=== PATIENT | male | born 1980 | race Caucasian/White ===

== ENCOUNTER 2016-10-02 22:22 | Emergency (ER) | payer OTHER ==
[~2016-10-02] VITALS: Ht 170.2 cm; Wt 83.3 kg
[~2016-10-02 22:22] MED LIST: SUMA50TA15 PO; TRAZ50TA35 PO
[2016-10-02 22:25] VITALS: TEMP 36.8; Ht 170.2 cm; Wt 83.3 kg
--- NOTE | 2016-10-02 23:24 | EMERGENCY ROOM VISIT NOTE ---
History Report prepared by Manuel: Mila Garcia Under the Supervision of: Dr. Galina Lee D.O. First contact with patient: 23:03 Chief Complaint: ANXIETY Stated Complaint: PANIC ATTACKS History of Present Illness The patient is a 35 year old male who presents to the Emergency Room with complaints of constant anxiety beginning last night. The patient states that he has been having a panic attack and has been having chest pains from his anxiety. He notes that he has taken 17 baths over the last two days to try to relax. He reports that his chest felt tight 2 hours ago, he felt arm pain and numbness, and it became more difficult to breathe for about 4 seconds. The patient reports that he is being treated for depression since his mother from cancer at the beginning of the month. He states that he takes 50mg of Trazodone when he needs to sleep and was previously on Klonopin as needed in the past. The patient complains of chest pain, sweating, arm pain, arm numbness , dizziness, and shortness of breath. He denies any suicidal or homicidal ideation, history of heart problems, drug abuse, and abdominal pain. Source of History: patient Onset: last night Position: other (global) Quality: other (anxiety, panic attack) Timing: constant Modifying Factors (Worsening): other (mother ) Associated Symptoms: + SOB, + chest pain, + numbness, No abdominal pain Note: The patient complains of sweating, arm pain, dizziness. He denies any suicidal or homicidal ideation, history of heart problems, drug abuse. Review of Systems See HPI for pertinent positives & negatives. A total of 10 systems reviewed and were otherwise negative. Past Medical & Surgical Medical Problems: (1) Asthma (2) Heart disease (3) Hypertension (4) Kidney stones Family History Diabetes mellitus FH: cancer FH: heart disease Hypertension Kidney disease or stones Social History Smoking Status: Current Every Day Smoker Alcohol Use: occasionally Marital Status: in relationship Housing Status: lives with significant other Occupation Status: employed Current/Historical Medications Scheduled Clonazepam (Klonopin), 1 TAB PO TID Trazodone Hcl (Trazodone), 50 MG PO HS Scheduled PRN Albuterol Hfa (Ventolin Hfa), 1 PUFF PO Q4 PRN for SOB/Wheezing Allergies Coded Allergies: Amoxicillin (Verified Allergy, Intermediate, UNKNOWN, 10/03/16) Cyclobenzaprine (Verified Allergy, Intermediate, MOOD SWINGS, 10/03/16) Aspirin (Unverified Allergy, Mild, 10/03/16) Penicillins (Unverified Allergy, Mild, 10/03/16) Codeine (Verified Allergy, Unknown, rash, 10/03/16) Tramadol (Verified Allergy, Unknown, ., 10/03/16) Venlafaxine (Verified Allergy, Unknown, ., 10/03/16) Physical Exam Vital Signs Date Time Temp Pulse Resp B/P Pulse Ox O2 Delivery O2 Flow Rate FiO2 10/03/16 00:32 92 16 121/66 98 Room Air 10/02/16 23:38 83 18 97 Room Air 10/02/16 23:33 87 10/02/16 22:25 36.8 90 18 143/83 97 Room Air Physical Exam HEENT: Head - normocephalic and atraumatic Pupils are equal, round, and reactive to light. Extraocular eye muscles are intact, and sclera are anicteric. Nose - moist nasal mucosa without discharge. Mouth - moist buccal mucosa. Oropharynx is nonerythematous and there is no tonsillar exudate or edema noted. Neck: Supple; no JVD, nuchal rigidity, cervical lymphadenopathy, or auscultated bruits. Heart: Regular rate and rhythm. There is a normal S1 and S2 with no murmurs, clicks, or gallops appreciated. Lungs: Clear to auscultation bilaterally with no wheezes, rales, or rhonchi. Abdomen: Soft, completely nontender, nondistended, with good bowel sounds. There are no palpable pulsatile masses or hepatosplenomegaly. There is no guarding, rigidity, or rebound noted. Extremities: No evidence of cyanosis, clubbing, or edema. There are easily palpable peripheral pulses. Skin: Diaphoretic with good turgor and no rashes. Skin has multiple tattoos. Medical Decision & Procedures Laboratory Results 10/02/16 23:30 10/02/16 23:30 Test 10/02/16 23:30 10/02/16 23:33 Red Blood Count 4.96 M/uL (4.7-6.1) Mean Corpuscular Volume 93.8 fL (80-100) Mean Corpuscular Hemoglobin 33.5 pg (25-34) Mean Corpuscular Hemoglobin Concent 35.7 g/dl (32-36) RDW Standard Deviation 44.2 fL (36.4-46.3) RDW Coefficient of Variation 12.8 % (11.5-14.5) Mean Platelet Volume 9.1 fL (7.4-10.4) Anion Gap 6.0 mmol/L (3-11) Est Creatinine Clear Calc Drug Dose 118.3 ml/min Estimated GFR () 127.8 Estimated GFR (Non- 110.3 BUN/Creatinine Ratio 14.6 (10-20) Calcium Level 8.8 mg/dl (8.5-10.1) Total Bilirubin 0.3 mg/dl (0.2-1) Aspartate Amino Transf (AST/SGOT) 15 U/L (15-37) Alanine Aminotransferase (ALT/SGPT) 30 U/L (12-78) Alkaline Phosphatase 113 U/L (45-117) Total Protein 7.6 gm/dl (6.4-8.2) Albumin 4.0 gm/dl (3.4-5.0) Globulin 3.6 gm/dl (2.5-4.0) Albumin/Globulin Ratio 1.1 (0.9-2) Lipase 382 U/L (73-393) Bedside Troponin I 0.000 ng/ml (0-0.045) Laboratory results per my review. Medications Administered Medications (Trade) Dose Ordered Sig/Diego Route Start Time Stop Time Status Last Admin Dose Admin Clonazepam (Klonopin Tab) 0.5 mg NOW STAT PO 10/03/16 00:27 10/03/16 00:29 DC 10/03/16 00:44 0.5 MG Procedure 0027: Klonopin Tab 0.5mg PO. ECG Indication: chest pain Rate (beats per minute): 84 Rhythm: normal sinus Findings: other (Flattened T-Waves laterally and inferiorly) Comparison ECG Date: 01/30/2009 Change: Flattened T waves now present ED Course 2303: Past medical records reviewed. The patient was evaluated in room A12B. A complete history and physical exam was performed. 0027: Klonopin Tab 0.5mg to take home since the patient drove 0034: I reevaluated and updated the patient. He was curious about his WBC count because his PCP told him in the past that it was very high. Today it was 11.5. 0034: Upon reevaluation, the patient is doing well. I discussed findings and results with the patient. He verbalized agreement of the treatment plan. The patient was discharged home. Medical Decision The patient is a 35 year old male who presents to the ED with anxiety. Differential diagnosis includes anxiety, mood disorder, cardiac ischemia, costochondritis, pleurisy. LABS: Troponin 0 Lipase and LFTs are Normal Normal Glucose and Renal Function Stable H&H WBC 11.5 This is a 35-year-old male patient presents to the emergency department with left-sided chest pain and anxiety. The patient does have a history of anxiety and is not currently taking any medications other than trazodone for sleep. The patient is scheduled to see a new primary care doctor where they plan to review his previous medications and get him started back on meds. The patient drove himself here tonight and therefore could not give her anything for his current anxious state. He was given a Klonopin to use at home. I also gave him prescription for 10 more Klonopin these until he could follow up with his PCP. Patient had negative cardiac enzymes within normal EKG. He believes that the left-sided discomfort is secondary to his anxiety. Impression Primary Impression: Anxiety Additional Impression: Left sided chest pain Scribe Attestation The scribe's documentation has been prepared under my direction and personally reviewed by me in its entirety. I confirm that the note above accurately reflects all work, treatment, procedures, and medical decision making performed by me. Departure Information Dispostion Home / Self-Care Prescriptions Clonazepam (KLONOPIN) 0.5 Mg Tab 1 TAB PO TID for Anxiety, #10 TAB Prov: Galina Lee D.O. 10/03/16 Referrals No Doctor, Assigned (PCP) Forms HOME CARE DOCUMENTATION FORM, IMPORTANT VISIT INFORMATION Patient Instructions Anxiety Body Response, Anxiety Disorder, My [facility] Additional Instructions Resturn to the ER if you have worsening symptoms. Follow up with PCP on Tuesday to adress meds Klonopin - 1 tab. every 6 hours for anxiety. No driving while taking Problem Qualifiers
[2016-10-02 23:54] LABS: HEMATOCRIT 46.5 % (42-52); MEAN CELL VOLUME 93.8 fL (80-100); MEAN CORPUSCULAR HEMOGLOBIN 33.5 pg (25-34); MEAN CORPUSCULAR HGB CONC 35.7 g/dl (32-36); MEAN PLATELET VOLUME 9.1 fL (7.4-10.4); PLATELET COUNT 251 K/uL (130-400); RED BLOOD COUNT 4.96 M/uL (4.7-6.1); WHITE BLOOD COUNT 11.52 K/uL (4.8-10.8)
[2016-10-03] MEDS ORDERED: VNTHFA/IN PO (00:03)
[2016-10-03 00:14] LABS: BUN/CREATININE RATIO 14.6 (10-20); CALCIUM 8.8 mg/dl (8.5-10.1); CREATININE 0.9 mg/dl (0.60-1.40)
[2016-10-03 00:16] LABS: ALB/GLOB RATIO 1.1 (0.9-2)
[2016-10-03] MEDS ORDERED: CLONAZEPAM 0.5 MG TAB PO STA (00:27)
[2016-10-03 00:32] VITALS: BP 121/66; PULSE 92; O2SAT 98
[2016-10-03] MEDS ORDERED: CLON0.5T3 PO (00:45)
== END 2016-10-03 00:52 | disposition home or self-care (01) ==
LOC: C.EDB 22:23 → C.EDA 10-03 00:52
DX: F41.9 Anxiety disorder, unspecified (principal); R07.9 Chest pain, unspecified; J45.909 Unspecified asthma, uncomplicated; I51.9 Heart disease, unspecified; I10 Essential (primary) hypertension; Z83.3 Family history of diabetes mellitus; Z82.49 Family history of ischemic heart disease and other diseases of the circulatory system; F17.200 Nicotine dependence, unspecified, uncomplicated

== ENCOUNTER 2017-04-24 06:58 | Emergency (ER) | payer OTHER ==
[~2017-04-24] VITALS: Ht 170.2 cm; Wt 85.0 kg
[~2017-04-24 06:58] MED LIST changes: -SUMA50TA15 PO; +VNTHFA/IN PO
[2017-04-24 07:03] VITALS: TEMP 37; Ht 170.2 cm; Wt 85.0 kg
[2017-04-24] MEDS ORDERED: KETOROLAC TROMETHAMINE 60 MG/2 ML VIAL IM STA (07:21)
[2017-04-24] MEDS ORDERED: DEXAMETHASONE SOD INJ 4 MG/ML 5 ML VIAL IM STA (07:21)
[2017-04-24] MEDS ORDERED: DEXAMETHASONE **PF** INJ 10 MG/ML VIAL ONE (07:28)
[2017-04-24] MEDS ORDERED: DEXT1LIQ58 PO (07:34)
[2017-04-24] MEDS ORDERED: PSEU1TAB67 PO (07:34)
[2017-04-24] MEDS ORDERED: PHEN-905 PO (07:34)
--- NOTE | 2017-04-24 08:23 | DIAGNOSTIC IMAGING REPORT ---
L-SPINE MIN 4 VIEWS ROUTINE HISTORY: 36 years-old Male LBP w/ R radiculitis acute low back pain with radiation into the right lower extremity COMPARISON: CT abdomen and pelvis 05/04/2016, lumbar spine CT 09/04/2011 TECHNIQUE: 5 views of the lumbar spine FINDINGS: Transitional lumbosacral anatomy noted with elongation and pseudoarticulation of the broadened L5 transverse processes with the adjacent sacral ala. No spondylolysis or spondylolisthesis. No acute fracture or subluxation. There is minimal intervertebral disc space narrowing at L5-S1. There is a 2 mm radiodensity projecting over the left upper abdomen. IMPRESSION: 1. No acute fracture or subluxation. 2. Transitional lumbosacral anatomy as above with L5-S1 intervertebral disc space narrowing. 3. 2 mm radiodensity projecting over the left upper abdomen may reflect renal calculus. The above report was generated using voice recognition software. It may contain grammatical, syntax or spelling errors. Electronically signed by: Skinny Greer M.D. 04/24/2017 8:21 AM Dictated Date/Time: 04/24/2017 8:19 AM
[2017-04-24 08:47] VITALS: BP 145/94; PULSE 86; O2SAT 96
[2017-04-24] MEDS ORDERED: NAPR-1169 PO (08:49)
[2017-04-24] MEDS ORDERED: METH4PAK PO (08:49)
[2017-04-24] MEDS ORDERED: OXYC1TAB3 PO (08:49)
--- NOTE | 2017-04-24 17:01 | EMERGENCY ROOM VISIT NOTE ---
History First contact with patient: 07:08 Chief Complaint: BACK PAIN Stated Complaint: LWR BACK PAIN-CAN'T WALK History of Present Illness The patient is a 36 year old male who presents to the Emergency Room with complaints of lower back pain radiating down the right leg to the foot and toes. The patient reports that he rolled out of bed this morning and landed on his right hip. The patient denies any bladder or bowel incontinence, saddle anesthesias or significant right lower extremity weakness. Weightbearing worsens his back pain. The patient reports a prior history of back problems, and in fact is on disability because of his back. The patient reports that he was seen by a spine surgeon in [place] who recommended surgery for herniated disc; however, the patient reports that he is unable to afford the surgery. The patient denies any significant problems with his back. He currently rates his discomfort an 8 out of 10. Review of Systems 10 system review was performed and was negative except for pertinent positives and negatives as indicated in history of present illness Past Medical/Surgical History Medical Problems: (1) Asthma (2) Chronic low back pain with sciatica (3) Heart disease (4) Hypertension (5) Kidney stones Family History Diabetes mellitus FH: cancer FH: heart disease Hypertension Kidney disease or stones Social History Smoking Status: Current Every Day Smoker Alcohol Use: occasionally Marital Status: in relationship Housing Status: lives with significant other Occupation Status: employed Current/Historical Medications Scheduled Dextromethorphan-Phenylephrine (Vicks Dayquil Cold & Flu), 1 DOSE PO UD Methylprednisolone (Medrol Dosepak), 0 PO DAILY Naproxen (Naprosyn), 500 MG PO BID Uzogwoqxskxlr-Htirqlkrcq-Deeji (Nyquil Severe Cold/Flu 5-6.25-10-325 mg/15Ml), 1 DOSE PO UD Pseudoephedrine Hcl (Pseudoephedrine Hcl Er), 1 TAB PO BID Trazodone Hcl (Trazodone), 50 MG PO HS Scheduled PRN Albuterol Hfa (Ventolin Hfa), 1 PUFF PO Q4 PRN for SOB/Wheezing Oxycodone Ir (Roxicodone Ir), 1-2 TAB PO Q4H PRN for Pain Physical Exam Vital Signs Date Time Temp Pulse Resp B/P (MAP) Pulse Ox O2 Delivery O2 Flow Rate FiO2 04/24/17 08:47 86 18 145/94 96 Room Air 11/12/17 07:03 37.0 104 20 152/78 97 Room Air Physical Exam CONSTITUTIONAL: Healthy and well nourished. Alert and oriented X 3 with positive affect. Patient appears in moderate discomfort from pain. HEENT: Normocephalic, atraumatic. Pupils equal, round and reactive. NECK: Full active range of motion without discomfort. RESPIRATORY: Clear to auscultation bilaterally with no wheezing, crackles, rhonchi or stridor. CARDIOVASCULAR: Regular rate and rhythm with no murmurs, rubs or gallops. GASTROINTESTINAL: Bowel sounds present in all quadrants. Soft and nontender to palpation. MUSCULOSKELETAL: Examination shows generalized tenderness to palpation through the lower back region and SI joints. Negative logroll. Negative sitting straight leg raise. Ankle plantar/dorsiflexion strength is 5 out of 5 and symmetric bilaterally. Pedal pulses are intact. INTEGUMENTARY: No rash or other significant dermatologic conditions noted. NEUROLOGIC: No focal neurologic deficits noted. Lower extremity deep tendon reflexes are 2+ and symmetric bilaterally. Medical Decision & Procedures ER Provider Diagnostic Interpretation: My interpretation of lumbar spine x-rays does not show any obvious fractures, subluxation or spondylolisthesis. There is narrowing at the L5-S1 disc space. Radiologist report is as follows: L-SPINE MIN 4 VIEWS ROUTINE HISTORY: 36 years-old Male LBP w/ R radiculitis acute low back pain with radiation into the right lower extremity COMPARISON: CT abdomen and pelvis 05/04/2016, lumbar spine CT 09/04/2011 TECHNIQUE: 5 views of the lumbar spine FINDINGS: Transitional lumbosacral anatomy noted with elongation and pseudoarticulation of the broadened L5 transverse processes with the adjacent sacral ala. No spondylolysis or spondylolisthesis. No acute fracture or subluxation. There is minimal intervertebral disc space narrowing at L5-S1. There is a 2 mm radiodensity projecting over the left upper abdomen. IMPRESSION: 1. No acute fracture or subluxation. 2. Transitional lumbosacral anatomy as above with L5-S1 intervertebral disc space narrowing. 3. 2 mm radiodensity projecting over the left upper abdomen may reflect renal calculus. Medications Administered Medications (Trade) Dose Ordered Sig/Diego Route Start Time Stop Time Status Last Admin Dose Admin Ketorolac Tromethamine (Toradol Inj) 60 mg NOW STAT IM 04/24/17 07:21 04/24/17 07:24 DC 04/24/17 07:30 60 MG Dexamethasone Sodium Phosphate (Dexamethasone Inj Pf) 10 mg STK-MED ONCE .ROUTE 04/24/17 07:28 04/24/17 07:29 DC 04/24/17 07:56 10 MG ED Course Patient history and physical exam were performed. Nurse's notes were reviewed. Vital signs were reviewed and were normal. Review of the patient's allergy list shows that he is allergic to aspirin, codeine, cyclobenzaprine and tramadol. I also reviewed the [place] Prescription Drug Monitoring Program , showing that the patient was prescribed Suboxone earlier this year. For the patient's discomfort, he was administered IM Toradol and Decadron. X-rays of the lumbar spine shows L5-S1 narrowing, otherwise no other acute findings are noted. Upon further questioning of the patient's reason for prior Suboxone use , he reports that his PCP referred him to Dr. Ortega because of marijuana use. The patient reports that he only took the Suboxone for 2 months and did not like the side effects. He reports that he has been clean of marijuana since that time. It is noted that the patient has no prior opioid prescriptions, and will therefore be provided prescriptions for Naprosyn, Medrol Dosepak and OxyIR. The patient was advised that he must follow-up with his PCP for any further pain management, I suspect that his PCP will likely refer him back to [facility] for reevaluation of his back. The patient was also seen and examined by Dr. Cooper, ED attending physician, who agrees with workup and plan of care. The patient was happy with plan of care, and rated his discomfort a 5 out of 10 at the time of discharge. The patient was instructed to return to the emergency department for any symptoms consistent with cauda equina, including progressively worsening pain, bladder/bowel incontinence, saddle anesthesias and/or foot drop. Medical Decision [place] Drug Monitoring Program Search Results: patient reviewed within database, see additional documentation Medication Reconcilliation Current Medication List: was personally reviewed by me Blood Pressure Screening Patient's blood pressure: Normal blood pressure Impression Primary Impression: Chronic low back pain with sciatica Additional Impression: Fall from bed Departure Information Prescriptions Oxycodone Ir (Roxicodone Ir) 5 Mg Tab 1-2 TAB PO Q4H Y for Pain, #15 TAB For Initial Treatment Prov: Glen Burr PA 04/24/17 Methylprednisolone (MEDROL DOSEPAK) 4 Mg Rosendo 0 PO DAILY, #1 PKT Prov: Glen Burr PA 04/24/17 Naproxen (Naprosyn) 500 Mg Tab 500 MG PO BID for 14 Days, #28 TAB Prov: Glen Burr PA 04/24/17 Referrals Sudha Couch C.R.N.P. (PCP) Patient Instructions My [facility] Problem Qualifiers Primary Impression: Chronic low back pain with sciatica Back pain laterality: right Sciatica laterality: sciatica of right side Qualified Codes: M54.41 - Lumbago with sciatica, right side; G89.29 - Other chronic pain Additional Impression: Fall from bed Encounter type: initial encounter Qualified Codes: W06.XXXA - Fall from bed , initial encounter
== END 2017-04-24 09:00 | disposition home or self-care (01) ==
LOC: C.EDB 06:59
DX: M54.41 Lumbago with sciatica, right side (principal); G89.29 Other chronic pain; W06.XXXA Fall from bed, initial encounter; Y92.013 Bedroom of single-family (private) house as the place of occurrence of the external cause; J45.909 Unspecified asthma, uncomplicated; I11.9 Hypertensive heart disease without heart failure; Z87.442 Personal history of urinary calculi; Z83.3 Family history of diabetes mellitus; Z80.9 Family history of malignant neoplasm, unspecified; Z82.49 Family history of ischemic heart disease and other diseases of the circulatory system; Z84.1 Family history of disorders of kidney and ureter; F17.210 Nicotine dependence, cigarettes, uncomplicated; Z79.899 Other long term (current) drug therapy

== ENCOUNTER 2018-01-26 16:54 | Emergency (ER) | payer OTHER ==
[~2018-01-26] VITALS: Ht 172.7 cm; Wt 87.0 kg
[~2018-01-26 16:54] MED LIST changes: +DEXT1LIQ58 PO; +PHEN-905 PO; +PSEU1TAB67 PO
[2018-01-26 17:14] VITALS: Ht 172.7 cm; Wt 87.0 kg
[2018-01-26 17:30] VITALS: O2SAT 99
[2018-01-26] MEDS ORDERED: SODIUM CHLORIDE 0.9% 1000ML 1,000 ML IV STA (17:34)
--- NOTE | 2018-01-26 17:48 | DIAGNOSTIC IMAGING REPORT ---
SINGLE VIEW CHEST CLINICAL HISTORY: Atypical chest pain. FINDINGS: An AP, portable, upright chest radiograph is compared to study dated 04/29/2013. The cardiomediastinal silhouette is unremarkable. The lungs and pleural spaces are clear. No pneumothorax is seen. The bony thorax is grossly intact. IMPRESSION: No active disease in the chest. Electronically signed by: Chapo Joseph M.D. 01/26/2018 5:47 PM Dictated Date/Time: 01/26/2018 5:47 PM
[2018-01-26 18:05] LABS: BASO % 0.3 %; BASO ABS # 0.04 K/uL (0-0.2); EOS % 1.4 %; HEMATOCRIT 48.5 % (42-52); HEMOGLOBIN 17.3 g/dL (14.0-18.0); IG# 0.04 K/uL (0.00-0.02); LYMPH % 30.3 %; LYMPH ABS # 4.27 K/uL (1.2-3.4); MEAN CELL VOLUME 91.2 fL (80-100); MEAN CORPUSCULAR HEMOGLOBIN 32.5 pg (25-34); MEAN CORPUSCULAR HGB CONC 35.7 g/dl (32-36); MEAN PLATELET VOLUME 9.4 fL (7.4-10.4); MONO % 5.7 %; NEUT ABS # 8.75 K/uL (1.4-6.5); PLATELET COUNT 275 K/uL (130-400); RED CELL DISTRIBUTION WIDTH CV 12.8 % (11.5-14.5); RED CELL DISTRIBUTION WIDTH SD 42.8 fL (36.4-46.3)
[2018-01-26] MEDS ORDERED: TRAZ100T29 PO (18:20)
[2018-01-26] MEDS ORDERED: ALBINS/ INH (18:20)
[2018-01-26 18:31] LABS: ALBUMIN 4.2 gm/dl (3.4-5.0); ALKALINE PHOSPHATASE 100 U/L (45-117); ALT/SGPT 51 U/L (12-78); AST/SGOT 24 U/L (15-37); BLOOD UREA NITROGEN 11 mg/dl (7-18); CALCIUM 9.1 mg/dl (8.5-10.1); CARBON DIOXIDE 25 mmol/L (21-32); CREATININE 0.99 mg/dl (0.60-1.40); GLUCOSE 90 mg/dl (70-99); LIPASE 158 U/L (73-393); POTASSIUM 4.1 mmol/L (3.5-5.1); SODIUM 135 mmol/L (136-145); TOTAL PROTEIN 7.8 gm/dl (6.4-8.2)
[2018-01-26] MEDS ORDERED: LORA-741 PO (21:31)
[2018-01-26] MEDS ORDERED: ATIVAN 1MG HOMEPACK PO ONE (21:45)
[2018-01-26 21:56] VITALS: BP 123/78; PULSE 75; TEMP 37; O2SAT 97
--- NOTE | 2018-01-27 03:14 | EMERGENCY ROOM VISIT NOTE ---
ED Visit Note First contact with patient: 17:20 Chief Complaint: Chest heaviness. History of Present Illness: Mr. Daniels is a 37 year-old white male who ambulates into the ED accompanied by female friend complaining of chest heaviness. Historically patient reports hypertension, asthma and bronchitis. Patient reports a gradual onset of heaviness sensation that started in his chest 4 days ago. Since that time the pain has been constant. The discomfort is constantly described as a 50 pound weight sitting on his chest. His discomfort is radiating into the bilateral shoulders. He reports his pain worsens when he is moving from the sitting to the lying position and moving from the sitting to the standing position. He has mild relief of his discomfort when he is standing up, bending forward at the waist and leaning forward. He does not feel this of pain and does not rate his discomfort. He has not taken any medications for this discomfort prior to arrival at the hospital. Associated with his pain he reports that he feels short of breath. He has not taken any medications for his symptoms prior to arrival at the hospital. Patient denies fevers, chills, sweats, skin eruptions, skin color changes, upper respiratory tract symptoms, wheezing, cough shortness of breath, orthopnea, dependent edema, previous clots, claudication, cramping, recent surgery/inactivity/extended travel, abdominal pain, nausea, vomiting, diarrhea, constipation, rectal bleeding, black/tarry stools, urinary symptoms, back/flank pain. Review of Systems: As noted above in history of present illness. All body systems were reviewed and found to be negative as noted above. Past Medical History: As previously noted. Current Medications: Albuterol, trazodone. Allergies to Medications: Amoxicillin, aspirin, codeine, cyclobenzaprine, tramadol, venlafaxine. Social History: Patient is not employed; he lives with his and feels safe in his home environment; he admits to tobacco use and denies alcohol and illicit drug use. Physical Examination: Vital Signs: Date Time Temp Pulse Resp B/P (MAP) Pulse Ox O2 Delivery O2 Flow Rate FiO2 01/26/18 21:56 37.0 75 13 123/78 97 01/26/18 21:16 75 01/26/18 20:59 65 13 97 01/26/18 20:29 68 18 96 01/26/18 19:59 64 15 97 01/26/18 19:29 74 18 97 01/26/18 18:59 64 13 97 01/26/18 18:54 66 12 97 01/26/18 18:32 123/78 01/26/18 18:24 71 18 96 01/26/18 18:01 129/87 01/26/18 17:54 71 14 97 01/26/18 17:31 142/78 01/26/18 17:30 99 Room Air 01/26/18 17:26 74 01/26/18 17:25 140/96 01/26/18 17:14 37.0 75 20 140/85 99 Room Air GENERAL: 37-year-old male in mild distress due to pain, nontoxic-appearing, afebrile and hemodynamically stable. NEUROLOGICAL: Awake, alert and oriented to person, place and time. Answering questions appropriately and following commands. Normal gait. Good hand eye coordination. SKIN: Warm, dry and pink. No soft tissue eruptions or trauma noted. HEENT: Atraumatic and normocephalic. PERRLA. Sclera white and conjunctiva pink. Oral cavity moist and pink. Pharynx is nonerythematous or edematous. Speech normal. No lymphadenopathy. Trachea midline. No jugular venous distention. BACK: No tenderness over the bony spine. No CVA tenderness. THORAX: Lungs sounds are clear to auscultation and equal bilaterally with symmetrical chest wall. No wheezing, rales or rhonchi. Reproducible discomfort with palpation over the anterior chest. No bony deformity, bony crepitus, swelling or subcutaneous air. No increased respiratory effort or rate. HEART: Regular rate and rhythm. No gallops, rubs or murmurs are appreciated. No lifts, heaves or thrills. PMI is not displaced. ABDOMEN: Flat, soft and nontender. Positive bowel sounds in all quadrants. No guarding, rigidity or organomegaly. EXTREMITIES: Moves all extremities well on command and with purpose. All distal neurovascular statuses are intact and equal bilaterally. No dependent edema or calf tenderness/cords. ED Course: Patient is assessed as noted above. Patient's medication list was reviewed. Laboratory Testing: Test 01/26/18 17:55 01/26/18 19:27 01/26/18 21:11 Range/Units White Blood Count 14.10 4.8-10.8 K/uL Red Blood Count 5.32 4.7-6.1 M/uL Hemoglobin 17.3 14.0-18.0 g/dL Hematocrit 48.5 42-52 % Mean Corpuscular Volume 91.2 80-100 fL Mean Corpuscular Hemoglobin 32.5 25-34 pg Mean Corpuscular Hemoglobin Concent 35.7 32-36 g/dl Platelet Count 275 130-400 K/uL Mean Platelet Volume 9.4 7.4-10.4 fL Neutrophils (%) (Auto) 62.0 % Lymphocytes (%) (Auto) 30.3 % Monocytes (%) (Auto) 5.7 % Eosinophils (%) (Auto) 1.4 % Basophils (%) (Auto) 0.3 % Neutrophils # (Auto) 8.75 1.4-6.5 K/uL Lymphocytes # (Auto) 4.27 1.2-3.4 K/uL Monocytes # (Auto) 0.80 0.11-0.59 K/uL Eosinophils # (Auto) 0.20 0-0.5 K/uL Basophils # (Auto) 0.04 0-0.2 K/uL RDW Standard Deviation 42.8 36.4-46.3 fL RDW Coefficient of Variation 12.8 11.5-14.5 % Immature Granulocyte % (Auto) 0.3 % Immature Granulocyte # (Auto) 0.04 0.00-0.02 K/uL Sodium Level 135 136-145 mmol/L Potassium Level 4.1 3.5-5.1 mmol/L Chloride Level 105 98-107 mmol/L Carbon Dioxide Level 25 21-32 mmol/L Anion Gap 5.0 3-11 mmol/L Blood Urea Nitrogen 11 7-18 mg/dl Creatinine 0.99 0.60-1.40 mg/dl Est Creatinine Clear Calc Drug Dose 109.6 ml/min Estimated GFR () 112.3 Estimated GFR (Non- 96.9 BUN/Creatinine Ratio 11.0 10-20 Random Glucose 90 70-99 mg/dl Calcium Level 9.1 8.5-10.1 mg/dl Total Bilirubin 0.4 0.2-1 mg/dl Direct Bilirubin < 0.1 0-0.2 mg/dl Aspartate Amino Transf (AST/SGOT) 24 15-37 U/L Alanine Aminotransferase (ALT/SGPT) 51 12-78 U/L Alkaline Phosphatase 100 45-117 U/L Total Protein 7.8 6.4-8.2 gm/dl Albumin 4.2 3.4-5.0 gm/dl Lipase 158 73-393 U/L Troponin I < 0.015 0-0.045 ng/ml Bedside Troponin I < 0.030 0-0.045 ng/ml Chest X-Rays: Were read by myself and the radiologist showing no acute infiltrates, effusions or pneumothorax. Normal heart silhouette and bony anatomy. EK was read by myself and reviewed with Dr. Riggins; shows normal sinus rhythm with sinus arrhythmia. Ventricular rate 69 bpm. Normal axis, intervals and complexes. No acute ST changes indicating ischemia, injury or infarction. This was compared to a previous and the only abnormal finding was the new sinus arrhythmia. EK was read by myself and reviewed with Dr. Riggins; shows normal sinus rhythm with sinus arrhythmia. Ventricular rate 64 bpm. Normal axis, intervals and complexes. No acute ST changes indicating ischemia, injury or infarction. This was compared to previous and no acute changes were noted. Cardiac score 0. Patient was hydrated with normal saline. Prior to discharge patient queried if this could be anxiety related. He reports he has recently had his mother passed and has been stressed with work and other family matters. I did inform him it could be stress related unfortunately there are no test to show that it would be stress related and that a evaluation would be needed to make sure was not something physical. After patient was hydrated with normal saline and he did report he was feeling better but was still feeling slight heaviness in his chest. Patient's case was reviewed with Dr. Riggins; we agreed on diagnostic approach, treatment, disposition and plan. Patient was educated about today's findings and instructed on his treatment plan ; he verbalized on this plan. Clinical Impression: Chest heaviness. Possible anxiety. Decision-Making: Initially my differential diagnosis I considered acute coronary syndrome, thoracic aneurysm, pneumothorax, pulmonary embolism, pneumonia and other causes. Disposition: Patient discharged home in stable condition; prior to departure he was reassessed and subjectively reported he was feeling better. Plan: Patient was encouraged to continue his current medications as prescribed. Patient was prescribed a 3 day course of Ativan and encouraged to use a half a milligram every 6 hours as needed for anxiety. Patient was informed that Ativan was a controlled substance and precautions were given to the patient. Additionally his name was checked on state database and no red flags were noted. Patient was encouraged to follow-up with his family physician for recheck and further evaluation. Patient was encouraged return the ED for worsening symptoms, fevers, coughing up blood or any new/concerning symptoms.
== END 2018-01-26 21:57 | disposition home or self-care (01) ==
LOC: C.EDB 16:55 → C.EDC 21:57
DX: R07.89 Other chest pain (principal); R06.02 Shortness of breath; I10 Essential (primary) hypertension; J45.909 Unspecified asthma, uncomplicated; Z72.0 Tobacco use; Z79.899 Other long term (current) drug therapy; Z88.0 Allergy status to penicillin; Z88.6 Allergy status to analgesic agent; Z88.8 Allergy status to other drugs, medicaments and biological substances

== ENCOUNTER 2019-07-14 18:45 | Observation (INO) ==
[2019-07-14] MEDS ORDERED: KETOROLAC TROMETHAMINE 15 MG/ML VIAL IV ONE (19:24)
[2019-07-14] MEDS ORDERED: ONDANSETRON INJ 2 MG/ML 2 ML VIAL IV STA (19:24)
[2019-07-14] MEDS ORDERED: SODIUM CHLORIDE 0.9% 1000ML 1,000 ML IV ONE (19:24)
[2019-07-14] MEDS: HYDROmorphone INJ 0.5 MG/0.5 ML SYR IV PRN ×2 (19:44→20:02)
[2019-07-14 19:50] LABS: Basophils # (auto) 0.04 K/uL (0-0.2); Basophils % (auto) 0.2 %; Eosinophils # (auto) 0.34 K/uL (0-0.5); Eosinophils % (auto) 1.7 %; Hemoglobin 15.4 g/dL (14.0-18.0); Immature Granulocytes # (auto) 0.05 K/uL (0.00-0.02); Immature Granulocytes % (auto) 0.3 %; Lymphocytes # (auto) 4.37 K/uL (1.2-3.4); Mean Corpuscular Volume 94.4 fL (80-100); Mean Platelet Volume 8.8 fL (7.4-10.4); Monocytes # (auto) 1.66 K/uL (0.11-0.59); Monocytes % (auto) 8.4 %; Neutrophils # (auto) 13.41 K/uL (1.4-6.5); Neutrophils % (auto) 67.4 %; Platelet Count 286 K/uL (130-400); RDW Coefficient of Variation 12.8 % (11.5-14.5); Red Blood Count 4.66 M/uL (4.7-6.1); White Blood Count 19.87 K/uL (4.8-10.8)
--- NOTE | 2019-07-14 19:50 | XRay Report ---
KUB CLINICAL HISTORY: Left ureteral stone. FINDINGS: 2 AP supine abdominal radiographs are compared to study dated 05/04/2016 and correlated wit h abdominal CT dated 07/12/2019. There is a nonobstructed abdominal bowel gas pattern noting moderate colonic fecal retention. No calcifications are seen projecting over either kidney or along the course of the ureters. The left ureteral stone seen yesterday may project over the bony pelvis. The lung ba ses are clear as imaged. The bony structures appear intact. IMPRESSION: 1. No renal calculi are identified. The left ureteral stone seen yesterday may project over the bony pelvis. 2. No bowel obstruction. Electronically signed by: Chapo Joseph M.D. 07/14/2019 7:49 PM
[2019-07-14 20:10] LABS: Appearance Urine Cloudy (Clear); Bacteria Urine Automated Negative (Negative); Bilirubin Urine Negative (Negative); Blood Urine 3+ (Negative); Color Urine Dark Yellow; Glucose Urine UA Negative (Negative); Ketones Urine Trace (Negative); Leukocyte Esterase Urine Negative (Negative); Nitrite Urine Negative (Negative); Protein Urine Negative (Negative); RBC Urine Automated >30 /hpf (0-4); Specific Gravity Urine 1.031 (1.000-1.030); Urobilinogen Urine Negative (Negative)
[2019-07-14 20:12] LABS: Albumin Level 3.7 gm/dl (3.4-5.0); BUN Creatinine Ratio 10.6 (10-20); Calcium 9.1 mg/dl (8.5-10.1); Creatinine Clr Calc Pharmacy 61.2 ml/min; Est GFR (African American) 65.9; Est GFR (Non-African American) 56.8; Potassium 3.7 mmol/L (3.5-5.1)
[2019-07-14 20:15] LABS: Albumin Globulin Ratio 1.1 (0.9-2); Bilirubin,Total 0.3 mg/dl (0.2-1); Globulin 3.4 gm/dl (2.5-4.0); Total Protein 7.1 gm/dl (6.4-8.2)
--- NOTE | 2019-07-14 22:41 | History & Physical Report ---
Date of Service July 14, 2019 Assessment & Plan (1) Ureterolithiasis: Left 5mm stone Obs med/surg Stain urine LR @ 150 Pain and nausea control NPO Urology consult (2) Hydronephrosis of left kidney: (3) Asthma: Continue prn albuterol (4) Hypertension: Continue lisinopril (5) Anxiety: Continue Trazodone and prn Ativan. History of Present Illness 38 y/o male was diagnosed with 5mm L ureteral stone in this ED yesterday. He was discharged to home with pain and nausea medication. He has continued to have severe pain with N/V not able to keep down medication. No F/C, cough, SOB, chest pain, hematuria, or diarrhea. Primary Care Provider: Alisha Tabor MD Allergies Allergy/AdvReac Type Severity Reaction Status Date / Time amoxicillin Allergy Intermediate UNKNOWN Verified 07/14/19 19:28 cyclobenzaprine Allergy Intermediate MOOD SWINGS Verified 07/14/19 19:28 aspirin Allergy Mild Unknown Verified 07/14/19 19:28 Penicillins Allergy Mild Unknown Verified 07/14/19 19:28 codeine Allergy Unknown rash Verified 07/14/19 19:28 tramadol Allergy Unknown . Verified 07/14/19 19:28 venlafaxine Allergy Unknown . Verified 07/14/19 19:28 Home Medications Home Medications Medication Instructions Recorded Confirmed Type albuterol sulfate [Ventolin HFA] 2 puff INHALATION QID PRN 07/30/18 07/14/19 History lisinopril [Zestril] 10 mg PO DAILY 07/30/18 07/14/19 History lorazepam [Ativan] 0.5 mg PO BID PRN 07/30/18 07/14/19 History trazodone 100 mg PO HS 07/30/18 07/14/19 History cefdinir 300 mg PO BID 10 Days #20 cap 07/13/19 07/14/19 Rx acetaminophen [Tylenol Extra 1,000 mg PO Q6H PRN 07/14/19 07/14/19 History Strength] hydrocodone-acetaminophen 1 tab PO Q6H PRN 07/14/19 07/14/19 History Past Med/Surg History Medical History Asthma (Chronic) Heart disease (Chronic) Hypertension (Chronic) Multiple substance abuse (Inactive) Family History Other Cancer Diabetes Hypertension Kidney disease Seizure Social History Preferred Language: Romanian Feels Safe at Home: Yes Smoking Status: Current every day smoker Review of Systems Review of Systems: Constitutional- no fever; no weight loss Eyes- no acute visual changes ENT- no sinus drainage; no pharyngitis Pulmonary- no cough, no wheezing, no shortness of breath Cardiac- no chest pain, no palpitations, no orthopnea, no dependent edema GI- See HPI - See HPI Musculoskeletal- no arthralgias, no myalgias Derm- no rashes, no new skin lesions. Hematologic- no unusual bruising, no unusual bleeding Lymphatics- no adenopathy Endocrine- no polyuria or polydipsia; no heat or cold intolerance Neuro- no headaches, no focal neurologic symptoms Psych- no anxiety, no depression Physical Exam Physical Exam: General- adult male, AND Head- atraumatic Eyes- PERRL, EOMI, anicteric ENT- oropharynx clear Neck- supple, no JVD, no adenopathy, no thyromegaly. Lungs-CTA b/l No R/R/W Heart- regular rhythm; no murmur, no gallop, no rub appreciated Abdomen- normal bowel sounds, soft, nontender. Mild Right costovertebral angle tenderness with percussion. Extremities- no pretibial edema, no calf tenderness; peripheral pulses intact Neuro- alert, oriented x 3; PERRL, EOMI; lining marker II-XII grossly intact, non-focal. Skin- warm & dry Results & Data Vital Signs (Past 12 Hours) Vital Signs Temp Pulse Pulse Resp BP BP Pulse Ox 07/14/19 22:33 82 17 126/76 98 07/14/19 21:25 69 18 143/89 H 99 07/14/19 20:51 70 18 143/85 H 99 07/14/19 19:49 99 07/14/19 18:50 36.4 C L 110 H 22 147/86 H 100 Laboratory Results Laboratory Results WBC 19.87 K/uL (4.8-10.8) H 07/14/19 19:37 RBC 4.66 M/uL (4.7-6.1) L 07/14/19 19:37 Hgb 15.4 g/dL (14.0-18.0) 07/14/19 19:37 Hct 44.0 % (42-52) 07/14/19 19:37 MCV 94.4 fL (80-100) 07/14/19 19:37 MCH 33.0 pg (25-34) 07/14/19 19:37 MCHC 35.0 g/dL (32-36) 07/14/19 19:37 RDW Std Deviation 44.0 fL (36.4-46.3) 07/14/19 19:37 RDW Coeff of Bruna 12.8 % (11.5-14.5) 07/14/19 19:37 Plt Count 286 K/uL (130-400) 07/14/19 19:37 MPV 8.8 fL (7.4-10.4) 07/14/19 19:37 Immature Gran % (Auto) 0.3 % 07/14/19 19:37 Neut % (Auto) 67.4 % 07/14/19 19:37 Lymph % (Auto) 22.0 % 07/14/19 19:37 [place] % (Auto) 8.4 % 07/14/19 19:37 Eos % (Auto) 1.7 % 07/14/19 19:37 Baso % (Auto) 0.2 % 07/14/19 19:37 Immature Gran # (Auto) 0.05 K/uL (0.00-0.02) H 07/14/19 19:37 Neut # (Auto) 13.41 K/uL (1.4-6.5) H 07/14/19 19:37 Lymph # (Auto) 4.37 K/uL (1.2-3.4) H 07/14/19 19:37 [place] # (Auto) 1.66 K/uL (0.11-0.59) H 07/14/19 19:37 Eos # (Auto) 0.34 K/uL (0-0.5) 07/14/19 19:37 Baso # (Auto) 0.04 K/uL (0-0.2) 07/14/19 19:37 Sodium 138 mmol/L (136-145) 07/14/19 19:37 Potassium 3.7 mmol/L (3.5-5.1) 07/14/19 19:37 Chloride 104 mmol/L (98-107) 07/14/19 19:37 Carbon Dioxide 27 mmol/L (21-32) 07/14/19 19:37 Anion Gap 6.0 (3-11) 07/14/19 19:37 BUN 16 mg/dl (7-18) 07/14/19 19:37 Creatinine 1.53 mg/dl (0.6-1.4) H 07/14/19 19:37 Est Cr Clr Drug Dosing 61.2 ml/min 07/14/19 19:37 Est GFR ( Amer) 65.9 07/14/19 19:37 Est GFR (Non-Af Amer) 56.8 07/14/19 19:37 BUN/Creatinine Ratio 10.6 (10-20) 07/14/19 19:37 Glucose 135 mg/dl (70-99) H 07/14/19 19:37 Calcium 9.1 mg/dl (8.5-10.1) 07/14/19 19:37 Total Bilirubin 0.3 mg/dl (0.2-1) 07/14/19 19:37 AST 14 U/L (15-37) L 07/14/19 19:37 ALT 20 U/L (12-78) 07/14/19 19:37 Alkaline Phosphatase 90 U/L (45-117) 07/14/19 19:37 Total Protein 7.1 gm/dl (6.4-8.2) 07/14/19 19:37 Albumin 3.7 gm/dl (3.4-5.0) 07/14/19 19:37 Globulin 3.4 gm/dl (2.5-4.0) 07/14/19 19:37 Albumin/Globulin Ratio 1.1 (0.9-2) 07/14/19 19:37 Lipase 303 U/L (73-393) 07/14/19 19:37 Urine Color Dark Yellow 07/14/19 19:45 Urine Appearance Cloudy (Clear) A 07/14/19 19:45 Urine pH 6.0 (4.5-7.5) 07/14/19 19:45 Ur Specific [place] 1.031 (1.000-1.030) H 07/14/19 19:45 Urine Protein Negative (Negative) 07/14/19 19:45 Urine Glucose (UA) Negative (Negative) 07/14/19 19:45 Urine Ketones Trace (Negative) H 07/14/19 19:45 Urine Blood 3+ (Negative) H 07/14/19 19:45 Urine Nitrite Negative (Negative) 07/14/19 19:45 Urine Bilirubin Negative (Negative) 07/14/19 19:45 Urine Urobilinogen Negative (Negative) 07/14/19 19:45 Ur Leukocyte Esterase Negative (Negative) 07/14/19 19:45 Urine WBC (Auto) 1-5 /hpf (0-5) 07/14/19 19:45 Urine RBC (Auto) >30 /hpf (0-4) H 07/14/19 19:45 U Hyaline Cast (Auto) 1-5 /lpf (0-5) 07/14/19 19:45 U Epithel Cells (Auto) 5-10 /lpf (0-5) H 07/14/19 19:45 Urine Bacteria (Auto) Negative (Negative) 07/14/19 19:45 Diagnostic Findings [place], [place] [phone] CT Scan Report Patient: BEVERLEY STROUD Date: 07/12/19 MR#: [id number]: [address] Acct ID:[id number]: Date: 1980[facility] Zip: [place] [address] Age: 38Location: ED Sex: M Room/Bed: Att Phy:Diagnosis: L ABDOMINAL PAIN SHOOTING DOWN TO GROIN Miladys Phy: Alisha Tabor M.D.Service Date: 07/12/19 Fam Phy:Interpreting Phy: Roderick Flanagan MD Admit Phy: Ordering Phy: Damien Ross PA-C cc: ~ CT SCAN OF THE ABDOMEN AND PELVIS WITHOUT CONTRAST CLINICAL HISTORY: Left flank pain radiating to the testicles COMPARISON STUDY: 05/04/2016 TECHNIQUE: CT scan of the abdomen and pelvis was performed from the lung bases to the proximal femurs. Images are reviewed in the axial, sagittal, and coronal planes. IV contrast was not administered for this examination. A dose lowering technique was utilized adhering to the principles of ALARA. CT DOSE: 894.68 mGycm FINDINGS: Lower chest: The heart is normal in size and configuration, without pericardial effusion. The lung bases and pleural spaces are clear. Liver: The unenhanced liver is normal in size, contour, and attenuation. There is no intrahepatic biliary ductal dilatation. Gallbladder: Unremarkable. Spleen: Normal in size and attenuation. Pancreas: Unremarkable. Adrenal glands: Unremarkable. Kidneys: There is a punctate mid pole left renal calculus. There is mild left- sided hydronephrosis and hydroureter. There is an obstructing 5 x 4 x 4 mm mid left ureteral calculus at the L5 level. Bowel: There are no transition zones indicate bowel obstruction. There is no evidence of acute diverticulitis. There is no evidence of acute appendicitis. Peritoneum: There is no intraperitoneal free air or abdominal ascites. Vasculature: The abdominal aorta is normal in course and caliber. Adenopathy: There are mildly prominent right ileocolic lymph nodes, likely react anisa Pelvic viscera: The bladder, and pelvic viscera are unremarkable. Skeletal structures: No destructive osseous lesions are seen. IMPRESSION: 5 x 4 x 4 mm obstructing left ureteral calculus at the L5 level. ACT 112: Negative or not required by law. Electronically signed by: Roderick Flanagan M.D. 07/13/2019 7:26 AM Dictated: 07/13/19721 Transcribed: 07/13/19721 Code Status & VTE Plan VTE Prophylaxis Plan VTE Prophylaxis will be ordered: Yes PG Care Time/CCT Total # of Minutes Spent Total Time Spent: 55 Total Time Spent with Patient: Total time spent is greater than 50% in coor dination of care (as documented) at patient's floor/unit and/or counseling patient: Coding Level of Care Code 59119 OBS Care - Level 3 Diagnoses Ureterolithiasis N20.1 Hydronephrosis of left kidney N13.30 Asthma J45.909 Hypertension I10 Anxiety F41.9
[2019-07-14] MEDS ORDERED: HYDROmorphone INJ 1 MG/ML SYRINGE IV PRN (23:22)
[2019-07-14] MEDS ORDERED: ONDANSETRON INJ 2 MG/ML 2 ML VIAL IV PRN (23:22)
[2019-07-14] MEDS ORDERED: ALBUTEROL 0.083% NEBU SOLN 3 ML VIAL NEB PRN (23:22)
[2019-07-14] MEDS ORDERED: ACETAMINOPHEN 325 MG TAB PO PRN (23:22)
[2019-07-14] MEDS ORDERED: LORazepam 0.5 MG TAB PO PRN (23:22)
[2019-07-14] MEDS: KETOROLAC 30 MG/ML VIAL IV PRN (23:54)
[2019-07-14] MEDS: LACTATED RINGER'S 1,000 ML IV SCH (23:55)
[2019-07-14] MEDS: FAMOTIDINE 20 MG TAB PO SCH (23:58)
--- NOTE | 2019-07-15 00:31 | Emergency Department Note ---
Entered by Javier Ruby acting as a scribe for Betito Keane MD ED Provider Note CHIEF COMPLAINT: left-sided flank pain HISTORY OF PRESENT ILLNESS: The patient is a 38 year old M who presents to the Emergency Room with complain ts of worsening left-sided flank pain that started 1 day ago. The patient notes that he has a left-sided kidney stone. He adds that he has had one kidney stone in the past. He states that he was seen in the ED, yesterday. He adds that he was discharged with a prescription for Zofran and Vicodin. He notes that when he went home, he felt a little better after taking the pain medications. He adds that he went to sleep with minimal pain. He notes that when he woke up, he was experiencing severe pain again. He states that his pain radiates to his back and testicles. He currently rates his pain as 9 out of 10. He states that he took a warm bath in his tub, today, to temporary relief. He notes that his pain returned after he got out of the tub. He adds that this is why he is in the ED today. A review of the patients records show that the patient was discharged 36 hours ago. The records state that the patient had a 5mm stone in his left ureter and was discharged home with Vicodin and Zofran. Pt denies LOC, headache, fevers, chills, diaphoresis, visual changes, neck pain, chest pain, breathing difficulties, vomiting, melena, hematochezia, urinary symptoms, numbness, weakness, lymphadenopathy, rash, or other complaints. REVIEW OF SYSTEMS: See HPI for pertinent positives and negatives. A total of ten systems were reviewed and were otherwise negative. PMHx/PSHx: Asthma, HTN, multiple substance abuse SOCIAL HISTORY: Patient lives at home. Patient is a smoker. PHYSICAL EXAM: GENERAL: Awake, alert, very uncomfortable-appearing HENT: Normocephalic, atraumatic. Oropharynx unremarkable. EYES: PERRL. Normal conjunctiva. Sclera non-icteric. NECK: Inspection normal. Non-tender. Supple. No nuchal rigidity. FROM. No masses. RESPIRATORY: Clear to auscultation. No wheezes. No rales. Normal respiratory effort. CARDIAC: Normal rate. Normal rhythm. No murmurs. No rubs. Extremities warm and well perfused. Pulses equal. No JVD. GI: Soft, non-distended. LLQ tenderness to palpation. No rebound or guarding. No masses. RECTAL: Deferred. MUSCULOSKELETAL: Atraumatic. Chest examination reveals no tenderness. The back is symmetrical on inspection without obvious abnormality. There is left CVA tenderness to palpation. No joint edema. LOWER EXTREMITIES: Calves are equal size bilaterally and non-tender. No edema. N o discoloration. NEURO: Normal sensorium. No sensory or motor deficits noted. SKIN: No rash or jaundice noted. EMERGENCY DEPARTMENT COURSE: 1921: The patient was evaluated in room B2, and a complete history and physical examination were performed. 2107: I re-checked the patient. He states that he is feeling better after two doses of pain medications. 2215: I reviewed the patient's case with Dr. Rainey, [facility] Hospitalist. He will evaluate the patient for further management. MEDICAL DECISION MAKING: Prior records/ancillary studies reviewed. Triage Nursing notes reviewed and agree them. The patient's history was concerning for flank and abdominal pain. Differential diagnosis: Etiologies such as renal colic, appendicitis, diverticulitis, mesenteric ischemia, aortic pathology, infections, inflammatory bowel disease, PUD, biliary pathology, UTI, as well as others were entertained. Physical examination findings: As above. Patient is very uncomfortable appearing ER treatment provided: IV Zofran IV Dilaudid times multiple doses IV Toradol Normal saline On reassessment the patient felt better. Diagnostic interpretation by me: The labs revealed a moderate leukocytosis on CBC. Chemistry panel was unrem arkable except for a borderline creatinine. Urinalysis revealed hematuria. There was no sign of UTI. Imaging studies: KUB was performed and no visible stone was seen. The patient had intractable pain secondary to stone despite oral pain medications. He is doing somewhat better here after the above treatment. I discussed further management in the hospital given his severe level pain. The patient felt comfortable with this plan and was in agreement. Consultation: A consultation was placed with the hospitalist. The case was discussed and diagnostics were reviewed. The patient was evaluated in the ER for further treatment. IMPRESSION: Left ureterolithiasis, intractable flank pain, leukocytosis PLAN: Admitted as inpatient. The scribe's documentation has been prepared under my direction and personally reviewed by me in its entirety. I confirm that the note above accurately reflects all work, treatment, procedures, and medical decision making performed by me. Impression & Plan Ureterolithiasis, Flank pain, Leukocytosis Past Med/Surg History Medical History (Updated 07/14/19 @ 23:03 by Amilcar Rainey DO) Anxiety Asthma (Chronic) Heart disease (Chronic) Hypertension (Chronic) Multiple substance abuse (Inactive) Family History Other Cancer Diabetes Hypertension Kidney disease Seizure Social History Preferred Language: [place]o Feels Safe at Home: Yes Smoking Status: Current every day smoker Results & Data Vital Signs Vital Signs - 24 hr 07/14/19 18:50 07/14/19 19:49 07/14/19 20:51 Temperature 36.4 C L Temperature Source Oral Pulse Rate 110 H Pulse Rate [Finger] 70 Respiratory Rate 22 18 Blood Pressure 147/86 H Blood Pressure [Left Arm] 143/85 H Blood Pressure Mean 106 Blood Pressure Mean [Left Arm] 104 Pulse Oximetry 100 99 99 Oxygen Delivery Method Room Air Room Air Room Air Sepsis Recent Fever Within 48 Hours No Sepsis New/Unexplained Change in Mental Status No Sepsis Action Taken by Nursing No Action Required 07/14/19 21:25 07/14/19 22:33 Temperature Temperature Source Pulse Rate Pulse Rate [Finger] 69 82 Respiratory Rate 18 17 Blood Pressure Blood Pressure [Left Arm] 143/89 H 126/76 Blood Pressure Mean Blood Pressure Mean [Left Arm] 107 92 Pulse Oximetry 99 98 Oxygen Delivery Method Room Air Room Air Sepsis Recent Fever Within 48 Hours Sepsis New/Unexplained Change in Mental Status Sepsis Action Taken by Group Home Medications Current Medication List: was personally reviewed by me Laboratory Data Attestation: I reviewed the patient's lab results. Result diagrams: 07/14/19 19:37 07/14/19 19:37 Lab Results 07/14/19 07/14/19 07/14/19 Range/Units 19:37 19:37 19:45 WBC 19.87 H (4.8-10.8) K/uL RBC 4.66 L (4.7-6.1) M/uL Hgb 15.4 (14.0-18.0) g/dL Hct 44.0 (42-52) % MCV 94.4 (80-100) fL MCH 33.0 (25-34) pg MCHC 35.0 (32-36) g/dL RDW Std Deviation 44.0 (36.4-46.3) fL RDW Coeff of Bruna 12.8 (11.5-14.5) % Plt Count 286 (130-400) K/uL MPV 8.8 (7.4-10.4) fL Immature Gran % (Auto) 0.3 % Neut % (Auto) 67.4 % Lymph % (Auto) 22.0 % [place] % (Auto) 8.4 % Eos % (Auto) 1.7 % Baso % (Auto) 0.2 % Immature Gran # (Auto) 0.05 H (0.00-0.02) K/uL Neut # (Auto) 13.41 H (1.4-6.5) K/uL Lymph # (Auto) 4.37 H (1.2-3.4) K/uL [place] # (Auto) 1.66 H (0.11-0.59) K/uL Eos # (Auto) 0.34 (0-0.5) K/uL Baso # (Auto) 0.04 (0-0.2) K/uL Sodium 138 (136-145) mmol/L Potassium 3.7 (3.5-5.1) mmol/L Chloride 104 (98-107) mmol/L Carbon Dioxide 27 (21-32) mmol/L Anion Gap 6.0 (3-11) BUN 16 (7-18) mg/dl Creatinine 1.53 H (0.6-1.4) mg/dl Est Cr Clr Drug Dosing 61.2 ml/min Est GFR ( Amer) 65.9 Est GFR (Non-Af Amer) 56.8 BUN/Creatinine Ratio 10.6 (10-20) Glucose 135 H (70-99) mg/dl Calcium 9.1 (8.5-10.1) mg/dl Total Bilirubin 0.3 (0.2-1) mg/dl AST 14 L (15-37) U/L ALT 20 (12-78) U/L Alkaline Phosphatase 90 (45-117) U/L Total Protein 7.1 (6.4-8.2) gm/dl Albumin 3.7 (3.4-5.0) gm/dl Globulin 3.4 (2.5-4.0) gm/dl Albumin/Globulin Ratio 1.1 (0.9-2) Lipase 303 (73-393) U/L Urine Color Dark Yellow Urine Appearance Cloudy A (Clear) Urine pH 6.0 (4.5-7.5) Ur Specific [place] 1.031 H (1.000-1.030) Urine Protein Negative (Negative) Urine Glucose (UA) Negative (Negative) Urine Ketones Trace H (Negative) Urine Blood 3+ H (Negative) Urine Nitrite Negative (Negative) Urine Bilirubin Negative (Negative) Urine Urobilinogen Negative (Negative) Ur Leukocyte Esterase Negative (Negative) Urine WBC (Auto) 1-5 (0-5) /hpf Urine RBC (Auto) >30 H (0-4) /hpf U Hyaline Cast (Auto) 1-5 (0-5) /lpf U Epithel Cells (Auto) 5-10 H (0-5) /lpf Urine Bacteria (Auto) Negative (Negative) Administered Medications Famotidine (Pepcid) 20 mg PO BID DIANA Stop: 08/13/19 23:21 Last Admin: 07/14/19 23:58 Dose: 20 mg Documented by: [id number] Lactated Ringer's (Lr) 1,000 mls @ 150 mls/hr IV .Q6H40M DIANA Stop: 08/13/19 23:21 Last Admin: 07/14/19 23:55 Dose: 150 mls/hr Documented by: [id number] Ketorolac Tromethamine (Toradol) 30 mg IV Q6H PRN PRN Reason: Moderate Pain Stop: 07/19/19 23:21 Last Admin: 07/14/19 23:54 Dose: 30 mg Documented by: [id number] Discontinued Medications Hydromorphone HCl (Dilaudid) 0.5 mg IV Q15M PRN PRN Reason: Pain Stop: 07/28/19 19:23 Last Admin: 07/14/19 20:02 Dose: 0.5 mg Documented by: [id number] Admin: 07/14/19 19:44 Dose: 0.5 mg Documented by: [id number] Sodium Chloride (Nss 1000ml) 1,000 mls @ 999 mls/hr IV .Q1H1M ONE Stop: 07/14/19 20:24 Last Infusion: 02/01/20 20:53 Dose: 0 mls/hr Documented by: [id number] Admin: 07/14/19 19:44 Dose: 999 mls/hr Documented by: [id number] Ketorolac Tromethamine (Toradol) 10 mg IV NOW ONE Stop: 07/14/19 19:25 Last Admin: 07/14/19 19:44 Dose: 15 mg Documented by: [id number] Ondansetron HCl (Zofran) 4 mg IV NOW STA Stop: 07/14/19 19:25 Last Admin: 07/14/19 19:44 Dose: 4 mg Documented by: [id number] Imaging Data Radiologist's Impression: Radiology results as stated below per my review and the radiologist's interpretation: KUB CLINICAL HISTORY: Left ureteral stone. FINDINGS: 2 AP supine abdominal radiographs are compared to study dated 05/04/2016 and correlated with abdominal CT dated 07/12/2019. There is a nonobstructed abdominal bowel gas pattern noting moderate colonic fecal retention. No calcifications are seen projecting over either kidney or along the course of the ureters. The left ureteral stone seen yesterday may project over the bony pelvis. The lung bases are clear as imaged. The bony structures appear intact. IMPRESSION: 1. No renal calculi are identified. The left ureteral stone seen yesterday may project over the bony pelvis. 2. No bowel obstruction. Electronically signed by: Chapo Joseph M.D. 07/14/2019 7:49 PM Blood Pressure Blood Pressure Findings: Elevated blood pressure Blood Pressure Disposition: further management by hospitalist Discharge Plan Visit Data *Final* Discharge Date/Time: 07/14/19 23:05 Chief Complaint: Kidney Stone Stated Complaint: KIDNEY STONE ED Provider: Betito Keane Discharge Problem: Ureterolithiasis, Flank pain, Leukocytosis Patient Disposition: Admitted As Inpatient Discharge Instructions Interventions: ED Discharge Assessment Last Done: 07/14/19 23:05 Discharge Problem: Leukocytosis Qualifiers: Leukocytosis type: unspecified Qualified Code(s): D72.829 - Elevated white blood cell count, unspecified The scribe's documentation has been prepared under my direction and personally reviewed by me in its entirety. I confirm that the note above accurately reflects all work, treatment, procedures, and medical decision making performed by me.
[2019-07-15] MEDS ORDERED: Nursing to Pharmacy Communication ONE (01:10)
[2019-07-15] MEDS: LACTATED RINGER'S 1,000 ML IV SCH ×2 (05:34→12:28)
[2019-07-15 06:00] LABS: Hematocrit (blood only) 40.9 % (42-52); Mean Corpuscular Hemoglobin 31.9 pg (25-34); Mean Corpuscular Hgb Conc 34.2 g/dL (32-36); Mean Corpuscular Volume 93.2 fL (80-100); Mean Platelet Volume 8.4 fL (7.4-10.4); Platelet Count 269 K/uL (130-400); RDW Coefficient of Variation 12.6 % (11.5-14.5); RDW Standard Deviation 42.5 fL (36.4-46.3); Red Blood Count 4.39 M/uL (4.7-6.1); White Blood Count 13.12 K/uL (4.8-10.8)
[2019-07-15 06:33] LABS: BUN Creatinine Ratio 9.2 (10-20); Calcium 8.5 mg/dl (8.5-10.1); Est GFR (African American) 70.9; Est GFR (Non-African American) 61.2; Potassium 4.1 mmol/L (3.5-5.1)
[2019-07-15] MEDS: KETOROLAC 30 MG/ML VIAL IV PRN (08:10)
[2019-07-15] MEDS: FAMOTIDINE 20 MG TAB PO SCH (08:11)
[2019-07-15] MEDS ORDERED: NICOTINE 14 MG/24 HR PATCH TD SCH (09:00)
[2019-07-15] MEDS ORDERED: lisinopriL 10 MG TAB PO SCH (09:00)
[2019-07-15] MEDS ORDERED: OXYCODONE/ACETAMINOPHEN 5mg/325mg TAB PO PRN (10:55)
--- NOTE | 2019-07-15 12:18 | Urology Consultation ---
Date of Consultation July 15, 2019 Assessment & Plan (1) Kidney stone on left side: His pain has improved since admission. Recent KUB does not show an obvious stone but I suspect it has migrated distally over the bony pelvis. His Cr and WBC have armendariz improved. I discussed treatment options with the patient. Medical expulsive therapy, ESWL, and Uscope with laser litho. THe patient was not NPO after midnight last night and continued to drink this morning so any surgical endeavor today is not possible. Regardless, the patient would like to proceed with trial of passage at this time. Continue IV fluids. Pain control. Antiemetics. If the patient feels better today he can be discharged home with outpatient follow-up. (2) Flank pain: History of Present Illness Reason for Consultation: Ureteral Calculus Attending Physician: Servando Carvalho 38 y/o Male presented to the ED yesterday with severe left flank pain. CT scan showed a 5mm mid ureteral calculus. Mild hydro. Stone at the level of L5. Pt has a hx of stones. He has been able to pass them in the past. No hx of ESWL or Uscope. He also reported testicular pain. US performed and that was negative. He was discharged to home from the ED. He then returned back to the ED with persistent pain. He was then admitted for observation and pain control. WBC elevated last night. Improved this morning to 13. Cr also elevated but improved this morning to 1.4 KUB did not show any stone. Likely overlying the bony pelvis. Over night he has had some improvement in pain. No hem. No dys. OK stream. NO fevers. No chills. No CP/SOB. Allergies Allergy/AdvReac Type Severity Reaction Status Date / Time amoxicillin Allergy Intermediate UNKNOWN Verified 07/14/19 19:28 cyclobenzaprine Allergy Intermediate MOOD SWINGS Verified 07/14/19 19:28 aspirin Allergy Mild Unknown Verified 07/14/19 19:28 Penicillins Allergy Mild Unknown Verified 07/14/19 19:28 codeine Allergy Unknown rash Verified 07/14/19 19:28 tramadol Allergy Unknown . Verified 07/14/19 19:28 venlafaxine Allergy Unknown . Verified 07/14/19 19:28 Home Medications Home Medications Medication Instructions Recorded Confirmed Type albuterol sulfate [Ventolin HFA] 2 puff INHALATION QID PRN 07/30/18 07/14/19 History lisinopril [Zestril] 10 mg PO DAILY 07/30/18 07/14/19 History lorazepam [Ativan] 0.5 mg PO BID PRN 07/30/18 07/14/19 History trazodone 100 mg PO HS 07/30/18 07/14/19 History cefdinir 300 mg PO BID 10 Days #20 cap 07/13/19 07/14/19 Rx acetaminophen [Tylenol Extra 1,000 mg PO Q6H PRN 07/14/19 07/14/19 History Strength] hydrocodone-acetaminophen 1 tab PO Q6H PRN 07/14/19 07/14/19 History Patient History Medical History Anxiety Asthma (Chronic) Heart disease (Chronic) Hypertension (Chronic) Migraines Multiple substance abuse (Inactive) Family History Other Cancer Diabetes Hypertension Kidney disease Seizure Social History Preferred Language: Citizen Of [place] Communication Ability: Effective Receiving Weigher Required: No Beliefs That Will Affect Care: None Current Living Situation: Spouse Feels Safe at Home: Yes Smoking Status: Current every day smoker Tobacco Type: cigarettes ; Cigarettes Per Day: 30 ; Hx Alcohol Use: No Hx Substance Use: No Review of Systems Review of Systems: All systems reviewed & are unremarkable except as noted in HPI & below Physical Exam Eyes: PERRL, conjunctivae normal, anicteric sclerae Neck: trachea midline, no thyromegaly Respiratory: normal respiratory effort, lungs clear to auscultation Cardiovascular: RRR, no murmur, no edema Gastrointestinal (Abdomen): normal bowel sounds, soft, nontender, no hepatosplenomegaly Musculoskeletal: no cyanosis or clubbing, extremities motor strength 5/5 Skin: no rashes, warm and dry Neurologic: patellar DTR's 2+ bilat, sensation intact Psychiatric: A+Ox3, euthymic affect Genitourinary: no testicular masses, no penis abnormality Lymphatic: no cervical or axillary lymphadenopathy Results & Data Vital Signs (Past 12 Hours) Vital Signs Temp Pulse Resp BP Pulse Ox 07/15/19 07:47 36.8 C 86 18 127/76 97 07/15/19 00:43 36.3 C L 96 H 16 122/75 98 Laboratory Results Laboratory Results WBC 19.87 K/uL (4.8-10.8) H 07/14/19 19:37 RBC 4.66 M/uL (4.7-6.1) L 07/14/19 19:37 Hgb 15.4 g/dL (14.0-18.0) 07/14/19 19:37 Hct 44.0 % (42-52) 07/14/19 19:37 MCV 94.4 fL (80-100) 07/14/19 19:37 MCH 33.0 pg (25-34) 07/14/19 19:37 MCHC 35.0 g/dL (32-36) 07/14/19 19:37 RDW Std Deviation 44.0 fL (36.4-46.3) 07/14/19 19:37 RDW Coeff of Bruna 12.8 % (11.5-14.5) 07/14/19 19:37 Plt Count 286 K/uL (130-400) 07/14/19 19:37 MPV 8.8 fL (7.4-10.4) 07/14/19 19:37 Immature Gran % (Auto) 0.3 % 07/14/19 19:37 Neut % (Auto) 67.4 % 07/14/19 19:37 Lymph % (Auto) 22.0 % 07/14/19 19:37 [place] % (Auto) 8.4 % 07/14/19 19:37 Eos % (Auto) 1.7 % 07/14/19 19:37 Baso % (Auto) 0.2 % 07/14/19 19:37 Immature Gran # (Auto) 0.05 K/uL (0.00-0.02) H 07/14/19 19:37 Neut # (Auto) 13.41 K/uL (1.4-6.5) H 07/14/19 19:37 Lymph # (Auto) 4.37 K/uL (1.2-3.4) H 07/14/19 19:37 [place] # (Auto) 1.66 K/uL (0.11-0.59) H 07/14/19 19:37 Eos # (Auto) 0.34 K/uL (0-0.5) 07/14/19 19:37 Baso # (Auto) 0.04 K/uL (0-0.2) 07/14/19 19:37 Sodium 138 mmol/L (136-145) 07/14/19 19:37 Potassium 3.7 mmol/L (3.5-5.1) 07/14/19 19:37 Chloride 104 mmol/L (98-107) 07/14/19 19:37 Carbon Dioxide 27 mmol/L (21-32) 07/14/19 19:37 Anion Gap 6.0 (3-11) 07/14/19 19:37 BUN 16 mg/dl (7-18) 07/14/19 19:37 Creatinine 1.53 mg/dl (0.6-1.4) H 07/14/19 19:37 Est Cr Clr Drug Dosing 61.2 ml/min 07/14/19 19:37 Est GFR ( Amer) 65.9 07/14/19 19:37 Est GFR (Non-Af Amer) 56.8 07/14/19 19:37 BUN/Creatinine Ratio 10.6 (10-20) 07/14/19 19:37 Glucose 135 mg/dl (70-99) H 07/14/19 19:37 Calcium 9.1 mg/dl (8.5-10.1) 07/14/19 19:37 Total Bilirubin 0.3 mg/dl (0.2-1) 07/14/19 19:37 AST 14 U/L (15-37) L 07/14/19 19:37 ALT 20 U/L (12-78) 07/14/19 19:37 Alkaline Phosphatase 90 U/L (45-117) 07/14/19 19:37 Total Protein 7.1 gm/dl (6.4-8.2) 07/14/19 19:37 Albumin 3.7 gm/dl (3.4-5.0) 07/14/19 19:37 Globulin 3.4 gm/dl (2.5-4.0) 07/14/19 19:37 Albumin/Globulin Ratio 1.1 (0.9-2) 07/14/19 19:37 Lipase 303 U/L (73-393) 07/14/19 19:37 Urine Color Dark Yellow 02/01/20 19:45 Urine Appearance Cloudy (Clear) A 07/14/19 19:45 Urine pH 6.0 (4.5-7.5) 07/14/19 19:45 Ur Specific [place] 1.031 (1.000-1.030) H 07/14/19 19:45 Urine Protein Negative (Negative) 07/14/19 19:45 Urine Glucose (UA) Negative (Negative) 07/14/19 19:45 Urine Ketones Trace (Negative) H 07/14/19 19:45 Urine Blood 3+ (Negative) H 07/14/19 19:45 Urine Nitrite Negative (Negative) 07/14/19 19:45 Urine Bilirubin Negative (Negative) 07/14/19 19:45 Urine Urobilinogen Negative (Negative) 07/14/19 19:45 Ur Leukocyte Esterase Negative (Negative) 07/14/19 19:45 Urine WBC (Auto) 1-5 /hpf (0-5) 07/14/19 19:45 Urine RBC (Auto) >30 /hpf (0-4) H 07/14/19 19:45 U Hyaline Cast (Auto) 1-5 /lpf (0-5) 07/14/19 19:45 U Epithel Cells (Auto) 5-10 /lpf (0-5) H 07/14/19 19:45 Urine Bacteria (Auto) Negative (Negative) 07/14/19 19:45
--- NOTE | 2019-07-15 19:10 | Discharge Summary ---
Date of Service July 15, 2019 Admission HPI Per Admitting Provider 38 y/o male was diagnosed with 5mm L ureteral stone in this ED yesterday. He was discharged to home with pain and nausea medication. He has continued to have severe pain with N/V not able to keep down medication. No F/C, cough, SOB, chest pain, hematuria, or diarrhea. Principal Diagnosis Ureterolithiasis Discharge Exam Constitutional WD/WN, vitals as above Eyes + anicteric sclerae ENMT Ears: no hearing impairment Neck trachea midline Respiratory normal respiratory effort, lungs clear to auscultation Cardiovascular RRR, no murmur, no edema Gastrointestinal (Abdomen) Inspection/Auscultation: normal bowel sounds Percussion/Palpation: abdomen soft; abdomen nontender Musculoskeletal Head/Neck/Chest: normocephalic and head atraumatic Skin no rashes, warm and dry Neurologic moves all extremities Psychiatric A+Ox3, euthymic affect Discharge Data Allergies Allergy/AdvReac Type Severity Reaction Status Date / Time amoxicillin Allergy Intermediate UNKNOWN Verified 07/14/19 19:28 cyclobenzaprine Allergy Intermediate MOOD SWINGS Verified 07/14/19 19:28 aspirin Allergy Mild NOSE BLEEDS Verified 07/16/19 15:44 Penicillins Allergy Mild CHILD, Verified 07/16/19 15:44 N/V, ANAPHYLACTIC tramadol Allergy Mild RASH, Verified 07/16/19 15:44 HIVES, BP DROPS venlafaxine Allergy Mild Rash Verified 07/16/19 15:44 codeine Allergy Unknown rash Verified 07/14/19 19:28 Consultations 07/14/19 22:39 ED Decision to Admit Stat 07/15/19 07:30 Consult Urology Routine Hospital Course (1) Ureterolithiasis: -CT from 07/12 reveals 5 mm obstructing left ureteral calculus at the L5 level and a punctate mid pole left renal calculus; KUB prior to admission does not reveal renal stone however suspect it is overlying the pelvic bone; scrotal ultrasound does not reveal testicular torsion -Ultimately, the pain medication he received from the ER did not control his pain -Reports Toradol has helped in the use of Percocet as needed for more severe pain was trialed in the hospital and adequate at this time -Urology discussed with patient who ultimately decided on continue trial of passing stone and will follow-up in the [facility] urology office in the coming week to consider lithotripsy or other procedure -Patient was prescribed Omnicef from his ED visit on 07/12 and was advised he can continue taking his antibiotic as previously prescribed (2) Hydronephrosis of left kidney: -Possibly relating to his mild acute kidney injury -suspect a level of obstructive uropathy -However creatinine is improving and suspect this will continue to trend to normal pending stone management; advised to hold his lisinopril for 2 to 3 days and given Rx to reassess his kidney function with results to his PCP (3) Asthma: -Stable; continue prn albuterol (4) Hypertension: - Continue lisinopril -advised to hold for 2 to 3 days giving slightly bumped creatinine (5) Anxiety: - Continue Trazodone and prn Ativan --Reviewed in PMPD -no current issues -most recent narcotic was sent as home pack from ED with 4 tablets Total Time Total Time Spent Total Time Spent (In Minutes): Greater than 30 minutes Discharge Plan Discharge Items Patient Disposition: Home - Self-Care Reason For Visit: LEFT 5MM URETERAL STONE Discharge Diagnosis: Kidney Stone in Ureter Activity: Resume your previous activity Non-emergency contact: Primary Care Provider Call non-emergency contact if: you have any medication questions, your symptoms worsen and you have a fever Follow-up/Referrals: Alisha Tabor MD [Primary Care Provider] - Diet: Regular Ambulatory Orders: Basic Metabolic Panel (Routine) Timeframe: 3 Days Location: Determined by Patient Ordered By: Lyric Junior Attending Provider Instructions: Kidney Stone in Ureter: - You have a 5 mm kidney stone that is down in the ureter (this is the tube that goes from your kidney to your bladder). At this size this stone may pass on its own or it may not. You do have a tiny stone in the L kidney that is read as punctate so this could pass in the future but thankfully it is pretty small. - The ogden will be staying hydrated and to get good pain control. - Continue the antibiotic previously prescribed - Will give a prescription for Toradol this is an anti-inflammatory that is similar to ibuprofen. Do not use ibuprofen, aleve, motrin, aspirin, etc when using Toradol. -- Sometime there can be a big co-pay for Toradol. If it is pricey you can use Ibuprofen or similar medications in its place - You will also have a prescription for Percocet to take. This does have tylenol in it (which is okay to use with toradol) however be mindful of any additional Tylenol usage - You will need to follow-up with [facility] Urology. You spoke with Dr. Banda here in the hospital. The number is [phone]. This is likely their main number so you will need to tell the fountain operator to connect you to Urology. Slightly Elevated Kidney Number: - Your creatinine (kidney number) is bumped up. This is common with dehydration and stones as it puts a little pressure on the kidneys. It is improving on labs. The ogden is to keep hydrated and get rid of that stone. This is a temporary bump in numbers and will resolve nicely. - Your blood pressure medication Lisinopril is processed through the kidneys. You can hold this medication for a couple days (2-3 days) and drink water. Then can resume this. - Will give you a lab slip to check your kidney numbers in a couple days. You can take this here to the hospital lab or anywhere you normally get labs like your family doctor and the results will be sent to them. Pending Studies at Discharge: No Stand-Alone Forms: My [facility] [employer], Opioid Pain Management, Smoking Cessation Medications and DC Order Prescriptions: New ketorolac 10 mg tablet 10 mg PO Q6H PRN (Reason: pain) 5 Days Qty: 20 RF: 0 Continued lorazepam [Ativan] 0.5 mg tablet 0.5 mg PO BID PRN (Reason: Anxiety) RF: 0 trazodone 100 mg tablet 100 mg PO HS RF: 0 lisinopril [Zestril] 10 mg tablet 10 mg PO QAM RF: 0 albuterol sulfate [Ventolin HFA] 90 mcg/actuation HFA aerosol inhaler 2 puff Inhalation QID PRN (Reason: Shortness Of Breath Or Wheezing) RF: 0 cefdinir 300 mg capsule 300 mg PO BID 10 Days Qty: 20 RF: 0 acetaminophen [Tylenol Extra Strength] 500 mg Tablet 1,000 mg PO Q6H PRN (Reason: Pain) RF: 0 Discontinued hydrocodone-acetaminophen 5-325 mg Tablet 1 tab PO Q6H PRN (Reason: Pain) RF: 0 No Action sumatriptan succinate [Imitrex] 100 mg Tablet 100 mg PO UD PRN (Reason: MIGRAINES) RF: 0 Discharge Orders: Discharge Order (Routine); Ordered 07/15/19 Ordered By: Lyric Felix/Other Patient Handouts: Healthy Kidneys, Kidney Probs Admission Data Admit Date/Time: 07/14/19 22:40 Attending Provider: Servando Carvalho Admit Provider: Amilcar Rainey Primary Care Provider: Alisha Tabor Other Providers: Amilcar Rainey ; Claudine Jimenez Other Interventions: Discharge Summary Assessment (RN) Last Done: 07/15/19 14:01 DC Date/Time DO NOT enter until pt leaves facility: 07/15/19 14:34 Supervising Physician Co-Signing Physician Notes During my face to face patient encounter, I obtained a history, physical examination and discussed discharge plan with the patient. I had reviewed above note by APC and agreed with it as my examination did not differ from Lyric SANCHEZ. I answered all of the patient's questions and concerns. Pain appears to be controlled. Patient will followup with Urology as an outpatient for possiblity of doing a lithotripsy to remove the stone Coding Level of Care Code D/C Day Management >30 mins Diagnoses Ureterolithiasis N20.1 Hydronephrosis of left kidney N13.30 Asthma J45.909 Hypertension I10 Anxiety F41.9
[2019-07-15] MEDS ORDERED: TRAZODONE HCL 100 MG TAB PO SCH (21:00)
== END 2019-07-15 14:34 | disposition home or self-care (01) ==
LOC: ED 18:45 → 3W 18:45 → SUATTDRO 22:40 → 3W 23:05